=== PATIENT | female | born 1970 | race Caucasian/White ===

== ENCOUNTER 2020-01-31 06:37 | Outpatient (CLI) | payer OTHER, SELFPAY ==
--- NOTE | ~2020-01-31 | XR_ITS ---
EXAMINATION: XR abdomen/kub 1V INDICATION: Gross hematuria TECHNIQUE: Supine views of the abdomen were obtained on 2 radiographs. COMPARISON: None FINDINGS: A phlebolith is noted in the left pelvis. No suspected urinary tract calculi are identified . A moderate volume of colonic stool is present. The bowel gas pattern is normal. IMPRESSION: 1. No radiographic correlate for the patient's symptoms. Reviewed, dictated and finalized at location A.
--- NOTE | ~2020-01-31 | CT_ITS ---
EXAMINATION: CT abdomen pelvis wo/w con DATE: 01/31/2020 07:26 INDICATION: Frequent bladder infections, gross hematuria TECHNIQUE: Computed tomography (CT) of the abdomen and pelvis was performed without intravenous contr ast. CT of the abdomen and pelvis was then performed with a total of 130 mL Omnipaque 350 intravenous contrast using a double-bolus technique for simultaneous opacification of the renal parenchyma and r enal collecting system. The dose-length product (DLP) was 1825.69 mGy-cm. Maximum intensity projectio n 3D-reconstructions of the collecting system were created by the technologist at a separate workstat ion. Automated exposure control and iterative reconstruction technique were employed. COMPARISON: None FINDINGS: The lung bases are clear. The heart size is normal. There is a small sliding hiatal hernia. The liver, spleen, pancreas, gallbladder, and adrenal glands are normal. There is a 2 mm nonobstruct ing stone in the left kidney lower pole. No stones are present in the right kidney, ureters, or the b ladder. There is no hydronephrosis or hydroureter. No suspicious renal or urothelial lesion is identi fied. No pathologically enlarged abdominal or pelvic lymph nodes are identified. There is no free int raperitoneal gas or evidence of bowel obstruction. The appendix is normal. There is mild lumbar spond ylosis. IMPRESSION: 1. 2 mm nonobstructing left kidney stone. No suspicious renal or urothelial lesion identified. No hyd ronephrosis or hydroureter. Reviewed, dictated and finalized at location A. IMPRESSION: 1. 2 mm nonobstructing left kidney stone. No suspicious renal or urothelial les ion identified. No hydronephrosis or hydroureter.
== END 2020-01-31 06:38 | disposition home or self-care (01) ==
LOC: ANHIMG 06:38
PROVIDERS: PCP Internal Medicine; Visit Provider Nurse Practitioner Adult Health
DX: R31.0 Gross hematuria (principal); N20.0 Calculus of kidney
CPT/HCPCS: 74018; 74178; Q9967

== ENCOUNTER 2025-06-17 14:03 | Outpatient (CLI) | payer BC, SELFPAY ==
--- NOTE | ~2025-06-17 | MM_ITS ---
EXAMINATION: MM screening darya BI w sandra HISTORY: Screening TECHNIQUE: Craniocaudal and mediolateral oblique 3-D tomosynthesis images were obtained and synthetic 2-D images were generated. CAD analysis was submitted and interpreted. COMPARISON: No prior mammogram is available for comparison at this institution. BREAST PARENCHYMAL COMPOSITION: The breasts are extremely dense, which lowers the sensitivity of mammography. FINDINGS: There is no evidence of suspicious mass, calcification, or architectural distortion to suggest malignancy. Focal asymmetry in the right breast at 12:00 position middle depth. IMPRESSION: 1. Focal asymmetry in the right breast at the 12:00 position middle depth. The study is incomplete. A diagnostic mammogram and a diagnostic ultrasound are recommended. 2. No evidence of malignancy in the left breast. BI-RADS 0: Incomplete-Need additional imaging evaluation. Reviewed, dictated and finalized at location Q. IMPRESSION: 1. Focal asymmetry in the right breast at the 12:00 position middle depth. The study is incomplete. A diagnostic mammogram and a diagnostic ultrasound are rec ommended. 2. No evidence of malignancy in the left breast. BI-RADS 0: Incomplete-Need additional imaging evaluation.
--- OUTSIDE RECORDS SUMMARY | 2025-06-17 15:13 | XMS_ITS | Encounter Summary ---
Author Organization [facility] Address [address] [place] [address] Phone Care Team Providers Care Accounts Payable Specialist Name Role Phone Ramana Garcias MD Primary Care Provi kenia Vani Freed MD Primary Care Provide r Vani Freed MD Primary Care Provide r Oliver Calixto MD Primary Care Provider [phone] Ramana Cody MD Unavailable [phone] Encounter Details Date Type Department Care Team (Late st Contact Info) Description 12/12/2017 Orders Only [facility] ProviderNolvia MD [facility] [place] [address] Social History Tobacco Use Types Packs/Day Years Used Date Smoking Tobacco: Never Smokeless Tobacco: Never Alcohol Use Standard Drinks/Week Comments Yes 10 (1 standard drink = 0.6 oz pu re alcohol) Comments No Sex and Gender Information Value Date Recorded Sex Assigned at Not on file Legal Sex Female 6:46 PM QUALITY ASSURANCE PROJECT MANAGER Gender Identity Female 09/01/2020 8:00 AM QUALITY ASSURANCE PROJECT MANAGER Sexual Orientation Straight 09/01/2020 8: 00 AM QUALITY ASSURANCE PROJECT MANAGER documented as of this encounter Plan of Treatment Not on file documented as of this encounter Procedures Procedure Name Priority Date/Time Associated Diagnosis Comments DISCHARGE LABORATORY CUMULATIVE REPORT 12/12/2017 12:00 AM CDT documented in this encounter Results * DISCHARGE LABORATORY CUMULATIVE REPORT (12/12/2017 12:00 AM CDT) Narrative 12/12/2017 12:00 AM CDT Ordered by an unspecified provider. us Historical Provider LAB BLOOD ORDERABLES Edith l Result documented in this encounter Visit Diagnoses Not on filedocumented in this encounter Additional Health Concerns Infection Onset Date Last Indicated Resolved Time COVID19 08/25/2020 08/25/2020 09/08/2020 3:06 AM QUALITY ASSURANCE PROJECT MANAGER COVID: Recovered Comment:Added based on recent COVID infection. 09/08/2020 09/08/2020 01/06/2021 3:05 AM C DT COVID: Suspected 09/06/2022 09/06/2022 09/06/2022 2:41 PM QUALITY ASSURANCE PROJECT MANAGER COVID: Suspected 09/06/2022 09/06/2022 09/06/2022 9:18 PM QUALITY ASSURANCE PROJECT MANAGER COVID: Suspected 09/24/2023 09/24/2023 09/24/2023 2:42 PM QUALITY ASSURANCE PROJECT MANAGER COVID: Suspected 09/24/2023 09/24/2023 09/24/2023 2:57 PM QUALITY ASSURANCE PROJECT MANAGER COVID19 09/24/2023 09/24/2023 10/04/2023 3:05 AM QUALITY ASSURANCE PROJECT MANAGER COVID: Recovered Comment:Added based on recent COVID infection. 10/04/2023 10/09/2023 01/02/2024 3:05 AM C DT COVID: Suspected 06/14/2025 06/14/2025 06/14/2025 10:04 AM CDT documented as of this encounter Care Teams Accounts Payable Specialist Relationship Specialty Start Date End Date Ramana Garcias MD PCP - General 11/13/12 03/30/22 Vani Freed MD [address] [place] [address] [address] PCP - General Family Medicine 04/15/22 04/19/22 Vani Freed MD [address] [place] [address] PCP - General 03/31/22 04/14/22 Oliver Calixto MD [address] [place] [address] PCP - General Family Medicine 04/20/22 Ramana Cody MD [address] [place] [address] Anesthesiologist Pain Management 07/19/22 documented as of this encounter
--- OUTSIDE RECORDS SUMMARY | 2025-06-17 15:13 | XMS_ITS | Clinical Summary ---
Author Organization [facility] Building A Address [address] [place] [address] Care Team Providers [employer] Name Role Phone Oliver Calixto MD Primary Care Provider [phone] Ramana Cody MD Unavailable [phone] Allergies Active Allergy Reactions Criticality Noted Date Comments Venom-Honey Bee Swelling Medium 10/07/2017 Cat Dander Swelling High 10/25/2017 Red and hot sensitive to touch. Solifenacin Edema Medium 04/14/2018 Medications rOPINIRole (REQUIP) 0.25 mg tablet Take 1 tablet (0.25 mg total) by mouth 3 (three) times a day 90 tablet 3 11/12/19 21 Active ondansetron ODT (ZOFRAN-ODT) 4 mg disintegrating tabletIndications:N ausea Take 1 tablet (4 mg total) by mouth every 8 (eight) hours as needed for nausea 20 tablet 12/06/19 25 Active [place] Thyroid 60 mg tablet Take 1 tablet (60 mg total) by mouth daily 90 tablet 1 02/22/20 25 Active traZODone (DESYREL) 50 mg tablet Take 1 tablet (50 mg total) by mouth nightly as needed for sleep 90 tablet 4 03/22/20 25 Active venlafaxine XR (EFFEXOR-XR) 75 mg 24 hr capsule Take 1 capsule (75 mg total) by mouth daily 90 capsule 04/03/20 25 Active estradioL (ESTRACE) 0.01 % (0.1 mg/gram) vaginal cream Insert 1g vaginally at bedtime every night for 2 weeks, after 2 weeks - insert 1g vaginally at bedtime 2-3 times per week as maintenance dose Active estradioL (VIVELLE-DOT) 0.05 mg/24 hr APPLY 1 PATCH TOPICALLY TO THE SKIN 2 TIMES A WEEK Active progesterone (PROMETRIUM) 100 mg capsule Take by mouth daily Active meloxicam (MOBIC) 15 mg tabletIndications:P rimary osteoarthritis of right knee Take 1 tablet (15 mg total) by mouth daily Every other day 05/08/20 25 026 Active diclofenac sodium (VOLTAREN) 1 % gelIndications:Oste oarthritis of the Knee Apply 4 g topically 4 (four) times a day 200 g 2 05/08/20 25 Active benzonatate (TESSALON) 200 mg capsuleIndications: Acute nasopharyngitis (common cold) Take 1 capsule (200 mg total) by mouth 3 (three) times a day as needed for cough 30 capsule 06/14/20 25 Active albuterol HFA (PROVENTIL HFA,VENTOLIN HFA,PROAIR HFA) 90 mcg/actuation inhalerIndications: Acute nasopharyngitis (common cold) Inhale 2 puffs every 6 (six) hours as needed for shortness of breath 18 g 06/14/20 25 Active Active Problems Problem Noted Date Diagnosed Date Primary osteoarthritis of right knee 05/08/2025 Assessment & Plan (05/08/2025 11:48 AM CDT): Reviewed xray results showing mild arthritis and small effusion. Will continue on Meloxicam every other day and start on Voltaren gel. Will continue to monitor. Referral placed to [facility] in [place] for physical therapy. Orders: Ambulatory referral order to Physical Therapy -; Future meloxicam (MOBIC) 15 mg tablet; Take 1 tablet (15 mg total) by mouth daily Every other day diclofenac sodium (VOLTAREN) 1 % gel; Apply 4 g topically 4 (four) times a day Healthcare maintenance 02/21/2025 Assessment & Plan (02/21/2025 3:30 PM CDT): Due for Pap/well-woman exam. Also interested in discussing hormone replacement therapy options. Previously under care of Dr. Borges, however has not been seen in the last 5 years and was unable to schedule appointment until March 2026. 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 Sleep disturbance 02/21/2025 Assessment & Plan (02/21/2025 3:29 PM CDT): Not sleeping well, has difficulty both falling and staying asleep. She reports frequent hot flashes at night. Continue venlafaxine 75 mg daily. Will trial p.r.n. trazodone and monitor response. Encouraged sleep hygiene. BMI 25.0-25.9,adult 02/21/2025 Assessment & Plan (05/08/2025 11:48 AM CDT): Weight appropriate for patient. Assessment & Plan (02/21/2025 3:30 PM CDT): Weight stable, encouraged healthy diet and regular exercise. Physical exam, annual 10/09/2024 Assessment & Plan (10/09/2024 9:14 AM SALES MGR): Preventive exam; reviewed recommended preventive screenings and vaccinations. Encourage annual flu vaccine. Wear sunscreen/protective clothing when outdoors. Encouraged healthy diet and regular exercise. Moderate episode of recurrent major depressive d isorder 10/09/2023 DDD (degenerative disc disease), lumbar 02/20/20 22 Degenerative lumbar spinal stenosis 02/19/2022 Lumbar facet arthropathy 02/19/2022 Lumbar radiculopathy 02/19/2022 Insomnia secondary to chronic pain 02/19/2022 Sacroiliitis 02/19/2022 Assessment & Plan (10/09/2024 9:13 AM SALES MGR): Continue meloxicam with good response, continue to monitor. Post viral asthma 01/27/2022 Assessment & Plan (01/27/2022 3:44 PM CDT): Cough andwheeze After covid. chedck cxr start bid symbicort dn dprn albuterol Asthma is the excess production of secretions and reactivity/twitchiness of the breathing / bronchial tubes. This can be chronic ,acute on chronic or episodic(acute).Inhaled materials in the form of pollutants( gaseous or particles) pollens ,exercise or infections that are usually viral. Some people never have issues unless they get a cold/flu. Some are mainly induced by exercise.If you have a regular need (read nearly daily use or need) of a rescue inhaler like albuterol you should be started on or use your controller inhaler/medicines..There is a place for episodic steroid use for those who have had or are having a fairly severe spell.There is a need for regular use of controller meds(usually steroid containing inhalers) for those who are proven to have a chronically obstructed breathing pattern. If you feel you are getting worse then an urgent visit to the er is in order or at least a return to the clinic for a re-evaluation of your meds/treament. Acute bilateral low back pain with bilateral sci atica 01/27/2022 Assessment & Plan (01/27/2022 3:44 PM CDT): New onset november and wowrse trial pt and worse over 3 treatments and stopped will ref er to pain trial for mri if can get but get L//s spine now Colon cancer screening 12/08/2021 Assessment & Plan (12/08/2021 4:20 PM CDT): Colon cancer referral Chronic right-sided low back pain without sciati ca 12/08/2021 Assessment & Plan (12/08/2021 4:24 PM CDT): Not stiff and refers to r buttock referal to pain md and s ee if not hsopful Essential hypertension 12/16/2020 Assessment & Plan (12/08/2021 4:14 PM CDT): The bp up some with ekg not showing bp effect. w0so watch anddwill drop with wt Hypertension, Medical treament revolves around weight control, salt management, and meds when necessary. long as weight loss is necessary and you are able to drop weight we can cont to monitor the blood pressure and not add meds. Once the weight is not changing then it becomes nesessary to add meds to be able to reach the goal bp. Assessment & Plan (07/20/2021 8:38 AM SALES MGR): bp on high side and needs to drp and will with wt or add medsHypertension, Medical treament revolves around weight control, salt management, and meds when necessary. long as weight loss is necessary and you are able to drop weight we can cont to monitor the blood pressure and not add meds. Once the weight is not changing then it becomes nesessary to add meds to be able to reach the goal bp. Assessment & Plan (03/17/2021 8:20 AM CDT): bp cont to push need to rx and if not lose wt then will start meds proposes wt lose inj and willl see if coHypertension, Medical treament revolves around weight control, salt management, and meds when necessary. long as weight loss is necessary and you are able to drop weight we can cont to monitor the blood pressure and not add meds. Once the weight is not changing then it becomes nesessary to add meds to be able to reach the goal bp.sri. Assessment & Plan (12/16/2020 2:11 PM CDT): bp driftin gdown but neds more and if not able to get wt down more then will needmeds for bp. ekg with early bp effects. Hypertension, Medical treament revolves around weight control, salt management, and meds when necessary. long as weight loss is necessary and you are able to drop weight we can cont to monitor the blood pressure and not add meds. Once the weight is not changing then it becomes nesessary to add meds to be able to reach the goal bp. Abnormal uterine bleeding 07/11/2020 Overview (07/11/2020): Added automatically from request for surgery [id number] Right lower quadrant pain 06/03/2020 Overview (06/03/2020): Will get another opinion on this by surgery and their recommendations. Avoid heavy lifting, constipation. told her what to look out for Assessment & Plan (06/03/2020 11:35 AM CDT): Unable to palpate hernia or defect, requested to have CD of CT images brought from [facility]. Patient agrees. Continue to avoid heavy lifting or other aggravating factors. Will call patient after review of case with . Atypical squamous cell nichols es of undetermined significance (ASCUS) on cervical cytology with positive high risk human papilloma virus (HPV) 07/10/2019 Overview (03/25/2022): Note: Unchanged Microscopic hematuria 06/19/2018 Assessment & Plan (07/24/2019 10:02 AM SALES MGR): Stable and chroinc Assessment & Plan (06/19/2018 9:04 AM CDT): Last uraine with micro Blood. Asked for referral ahthat got lost. Period was 10 days . Can repeat urine now but would refer forhte blood. As on period will cancel the ordered urine for today as high likely antonio of being positive History of recurrent UTI (urinary tract infectio n) 04/15/2018 Assessment & Plan (02/22/2020 1:37 PM CDT): Trying ccranberry and se if helps by fall go to Reg cranberries 6 -9 a day and see what that is Urge incontinence of urine 02/16/2018 Assessment & Plan (04/14/2021 1:54 PM CDT): Ditropan at 5mg works and out for 5 wks and back on an dworking Assessment & Plan (06/19/2018 8:56 AM CDT): meds wowrking Assessment & Plan (02/16/2018 9:20 AM CDT): Trial ditropan 5 bid and re assess 4-6 wks. And adjust up as need and tolerated IGT (impaired glucose tolerance) 02/16/2018 Assessment & Plan (12/08/2021 4:00 PM CDT): a1C AT 5.5 AND BETTER Assessment & Plan (07/20/2021 8:37 AM SALES MGR): a1c 5.7 and was 5.4 and neds to drop Assessment & Plan (03/17/2021 8:19 AM CDT): a1c drifting down to 5.4 and better despite wt Gain. Assessment & Plan (12/16/2020 2:10 PM CDT): a1c at 5.6 and nl . Assessment & Plan (11/11/2020 9:12 AM SALES MGR): a1c at 5.6 pre diabetic and inching up diet works Assessment & Plan (06/12/2020 1:35 PM CDT): a1c at 5.5 and nl. Assessment & Plan (02/22/2020 1:39 PM CDT): Check a1c on rturn Assessment & Plan (07/24/2019 9:58 AM SALES MGR): a1c at 5.4 and 5.6 nl. Assessment & Plan (06/19/2018 8:56 AM CDT): Check a1c on return Assessment & Plan (02/16/2018 9:21 AM CDT): Check a1c on return Recurrent major depressive disorder, in partial remission 06/22/2017 Assessment & Plan (10/09/2024 9:14 AM SALES MGR): Had tapered venlafaxine from 225 mg to 150 mg. States that she try to further reduce dosage 75 mg and noted some irritability so she has continued venlafaxine at 150 mg daily. Feels moods are stable at this time. Will continue to monitor. Assessment & Plan (12/08/2021 4:20 PM CDT): Doing great with chooane in meds And life job. Assessment & Plan (07/20/2021 8:40 AM SALES MGR): derpressino and partial contorll and restarting acativbity and workout s and help Assessment & Plan (04/14/2021 2:04 PM CDT): Active with dad's consider adding seroquel for help if not settelewd Assessment & Plan (12/16/2020 2:13 PM CDT): derpoiesn improved and with stress will settle as that dose for now leave meds as on . Assessment & Plan (11/11/2020 9:13 AM SALES MGR): Active depresion and will add 75 of ef fexor and see in 4-6 wks and see if enough if no changs then back off and add s oemthing elese. Life activty and spring will help Assessment & Plan (06/12/2020 1:34 PM CDT): Working and watch for wnter worsening Assessment & Plan (02/22/2020 1:39 PM CDT): Back on meds and will give it time Assessment & Plan (11/16/2019 3:32 PM CDT): Increase lexapro 30mg by mouth daily. Patient instructed to cut current 20mg tab in half to add 10mg. Discussed risk associated with use of effexor in addition to lexapro. Patient verbalized understanding and agreed to plan of care at this time. Will follow up in 4 months as discussed. In addition, recommend healthy outlets to help handle current stressors. We discussed journaling as well as diet and exercise. Patient verbalized understanding and agreed to plan of care at this time. Assessment & Plan (07/24/2019 10:01 AM SALES MGR): Depression not apparently controlled given 30 lbs gain so needs to recognize the stressors and how she is repondingl Assessment & Plan (06/19/2018 8:52 AM CDT): Depression well controlled. And stay with Assessment & Plan (02/16/2018 9:13 AM CDT): worseing father and daughter with major wt issues. Walked thru issue and needs to take care of self and lead partly by example and then will see f.u from those around. meds w orsening but struggling and needs to back off and look and affect what can do and learn where that is. Anovulatory bleeding 11/18/2016 Overview (03/25/2022): Note: Unchanged Urge and stress incontinence 03/11/2016 Overview (03/25/2022): Note: Unchanged Encounter for tubal ligation 11/05/2014 Overview (03/25/2022): Note: Unchanged Assessment & Plan (12/08/2021 4:19 PM CDT): Well exam no other md Low fall risk Stress better. afe 5 1 qdn needs colon eval And well refer for and darya refer. As well , Non flu shot and up to date on tetnus. Had covid shots. Assessment & Plan (11/11/2020 9:18 AM SALES MGR): Well exam derpioens actived and adjmust meds and life and see if helps Screening lipids mildy up and a1c at 5.6. Recent intervention at [facility]. Probably covid months ago. See for bp and li pids in 4 monhts and deproieons in 4-6 wks Discussed colon and for now on back burner Assessment & Plan (07/24/2019 10:09 AM SALES MGR): Consider fal flu shots. Needs to take care of self given 30 lbs gain and not sustainable without causing issues. Ask to checkwith support group about stress, will take a flu shot. Fibrocystic breast changes 11/05/2014 Overview (03/25/2022): Note: Unchanged Multiple-type hyperlipidemia 01/19/2014 Overview (12/08/2016): MIXED HYPERLIPIDEMIA Assessment & Plan (12/08/2021 4:00 PM CDT): t cho up to 279 and ldl 162 trig 329 and high and meds if not get down Your cholesterol in the form of ldl (bad) cholesterol,hdl(good) cholesterol and triglycerides are monitored. The triglycerides respond to reduction/controll of your simple carbs/sugars In such items as sugared soda/sweet tea along with fruit juices(containing natural sugar) even if no added sugar is added. LDL cholesterol is reduced with reducing daily intake of fats and alicia. saturated fats. The monosaturated fats like olive oil are not harmful except in the calories they contained. Whole milk cheese needs to be remembered along with whole milk products And limited. Assessment & Plan (07/20/2021 8:39 AM SALES MGR): ldl up to 141 and was 121 so diet and meds ans ad mds if cont to go up. Your cholesterol in the form of ldl (bad) cholesterol,hdl(good) cholesterol and triglycerides are monitored. The triglycerides respond to reduction/controll of your simple carbs/sugars In such items as sugared soda/sweet tea along with fruit juices(containing natural sugar) even if no added sugar is added. LDL cholesterol is reduced with reducing daily intake of fats and alicia. saturated fats. The monosaturated fats like olive oil are not harmful except in the calories they contained. Whole milk cheese needs to be remembered along with whole milk products And limited. Assessment & Plan (03/17/2021 8:25 AM CDT): ldl and trig inching down with trig 195 and where above 200 by a few and ldl down to 121 and only anothoer 5 lower but heading down no rx and cont diet Your cholesterol in the form of ldl (bad) cholesterol,hdl(good) cholesterol and triglycerides are monitored. The triglycerides respond to reduction/controll of your simple carbs/sugars In such items as sugared soda/sweet tea along with fruit juices(containing natural sugar) even if no added sugar is added. LDL cholesterol is reduced with reducing daily intake of fats and alicia. saturated fats. The monosaturated fats like olive oil are not harmful except in the calories they contained. Whole milk cheese needs to be remembered along with whole milk products And limited. Assessment & Plan (12/16/2020 2:10 PM CDT): ldl at 126 and was 145 so Heading to rightr direction but not there yetYour cholesterol in the form of ldl (bad) cholesterol,hdl(good) cholesterol and triglycerides are monitored. The triglycerides respond to reduction/controll of your simple carbs/sugars In such items as sugared soda/sweet tea along with fruit juices(containing natural sugar) even if no added sugar is added. LDL cholesterol is reduced with reducing daily intake of fats and alicia. saturated fats. The monosaturated fats like olive oil are not harmful except in the calories they contained. Whole milk cheese needs to be remembered along with whole milk products And limited. Assessment & Plan (11/11/2020 9:11 AM SALES MGR): ldl above 100 with target down and see if diet can work and if not then meds.Your cholesterol in the form of ldl (bad) cholesterol,hdl(good) cholesterol and triglycerides are monitored. The triglycerides respond to reduction/controll of your simple carbs/sugars In such items as sugared soda/sweet tea along with fruit juices(containing natural sugar) even if no added sugar is added. LDL cholesterol is reduced with reducing daily intake of fats and alicia. saturated fats. The monosaturated fats like olive oil are not harmful except in the calories they contained. Whole milk cheese needs to be remembered along with whole milk products And limited. Assessment & Plan (06/12/2020 1:34 PM CDT): ldl at 145 and touch down Work to drop further. Your cholesterol in the form of ldl (bad) cholesterol,hdl(good) cholesterol and triglycerides are monitored. The triglycerides respond to reduction/controll of your simple carbs/sugars In such items as sugared soda/sweet tea along with fruit juices(containing natural sugar) even if no added sugar is added. LDL cholesterol is reduced with reducing daily intake of fats and alicia. saturated fats. The monosaturated fats like olive oil are not harmful except in the calories they contained. Whole milk cheese needs to be remembered along with whole milk products And limited. Assessment & Plan (02/22/2020 1:37 PM CDT): ldl up to 150 and work to drop or add meds if cont to go upYour cholesterol in the form of ldl (bad) cholesterol,hdl(good) cholesterol and triglycerides are monitored. The triglycerides respond to reduction/controll of your simple carbs/sugars In such items as sugared soda/sweet tea along with fruit juices(containing natural sugar) even if no added sugar is added. LDL cholesterol is reduced with reducing daily intake of fats and alicia. saturated fats. The monosaturated fats like olive oil are not harmful except in the calories they contained. Whole milk cheese needs to be remembered along with whole milk products And limited. Assessment & Plan (11/16/2019 3:29 PM CDT): Recheck lipids in 4 months. Total cholesterol has increased total cholesterol increased from 205 to 216. LDL increased to 125 and HDL decrease from 73 to 66 at this time. Triglycerides currently 141. Patient states she did not eat well the night before and admits to alcohol intake the evening before. We discussed importance of diet and exercise not only for stress relief, but to also decrease risk associated with obesity and hyperlipidemia. Patient verbalized understanding and will have repeat labs completed in 4 months, prior to follow up. Your cholesterol in the form of ldl (bad) cholesterol,hdl(good) cholesterol and triglycerides are monitored. The triglycerides respond to reduction/control of your simple carbs/sugars In such items as sugared soda/sweet tea along with fruit juices(containing natural sugar) even if no added sugar is added. LDL cholesterol is reduced with reducing daily intake of fats and alicia. saturated fats. The monosaturated fats like olive oil are not harmful except in the calories they contained. Whole milk cheese needs to be remembered along with whole milk products and limited. Assessment & Plan (07/24/2019 9:57 AM SALES MGR): ldl at 106 and less ehn 130 and good no changx Assessment & Plan (06/19/2018 8:55 AM CDT): Check labs on returnYour cholesterol in the form of ldl (bad) cholesterol,hdl(good) cholesterol and triglycerides are monitored. The triglycerides respond to reduction/controll of your simple carbs/sugars In such items as sugared soda/sweet tea along with fruit juices(containing natural sugar) even if no added sugar is added. LDL cholesterol is reduced with reducing daily intake of fats and alicia. saturated fats. The monosaturated fats like olive oil are not harmful except in the calories they contained. Whole milk cheese needs to be remembered along with whole milk products And limited. Assessment & Plan (02/16/2018 9:10 AM CDT): Trigs high and ldl t barely less then 130. Your cholesterol in the form of ldl (bad) cholesterol,hdl(good) cholesterol and triglycerides are monitored. The triglycerides respond to reduction/controll of your simple carbs/sugars In such items as sugared soda/sweet tea along with fruit juices(containing natural sugar) even if no added sugar is added. LDL cholesterol is reduced with reducing daily intake of fats and alicia. saturated fats. The monosaturated fats like olive oil are not harmful except in the calories they contained. Whole milk cheese needs to be remembered along with whole milk products And limited. Assessment & Plan (06/22/2017 2:34 PM CDT): ldl less then 130 and nl but up over last yr. Now 118 and nl chanes but overall diet causing. No changes fornowYour cholesterol in the form of ldl (bad) cholesterol,hdl(good) cholesterol and triglycerides are monitored. The triglycerides respond to reduction/controll of your simple carbs/sugars In such items as sugared soda/sweet tea along with fruit juices(containing natural sugar) even if no added sugar is added. LDL cholesterol is reduced with reducing daily intake of fats and alicia. saturated fats. The monosaturated fats like olive oil are not harmful except in the calories they contained. Whole milk cheese needs to be remembered along with whole milk products And limited. Perimenopausal disorder 01/19/2014 Overview (03/25/2022): PMS (premenstrual syndrome) Note: Unchanged Anxiety 01/19/2014 Overview (03/25/2022): ANXIETY STATE NOS Note: Unchanged Assessment & Plan (02/21/2025 3:28 PM CDT): Has continued venlafaxine 75 mg daily. Patient experiencing increased anxiety that she feels is related to hormone fluctuations. We discussed adding buspirone, patient will consider and reach out if she would like to pursue this. Denies any depressive symptoms. Will continue to monitor. Resolved Problems Problem Noted Date Diagnosed Date Resolved Date Class 1 obesity with body ma ss index (BMI) of 34.0 to 34.9 in adult 12/16/2020 10/09/2024 Assessment & Plan (01/27/2022 4:43 PM CDT): Work wt Assessment & Plan (12/08/2021 4:13 PM CDT): Watch wt Assessment & Plan (07/20/2021 8:41 AM SALES MGR): workto keep from cont to gain Assessment & Plan (04/14/2021 2:02 PM CDT): Wants to try vcitoza and aware likely not covered discussed starting at max .6 and work up and if Finds 1.2 helps with appttice stop then Assessment & Plan (03/17/2021 8:26 AM CDT): Wt lose important trial victoza if covered Assessment & Plan (12/16/2020 2:14 PM CDT): Wt better But needs more wt off s bp will xcome down BMI 27.0-27.9,adult 04/15/2018 07/24/20 19 Assessment & Plan (06/19/2018 8:57 AM CDT): droping wt and stopthe phenterime and rechec onreturn. Burning with urination 04/15/201806/19 Elevated BP without diagnosis of hypertension 02/17/20 18 12/16/2020 Assessment & Plan (11/11/2020 9:06 AM SALES MGR): The bp high and treatable if not able to btring down. ekg with axis 4 and at - evangelista fitcriteria for htn heart Wt off should bring down bp. Will recheck in 4 monoths and see if worse stress an issueHypertension, Medical treament revolves around weight control, salt management, and meds when necessary. long as weight loss is necessary and you are able to drop weight we can cont to monitor the blood pressure and not add meds. Once the weight is not changing then it becomes nesessary to add meds to be able to reach the goal bp. Assessment & Plan (06/12/2020 1:35 PM CDT): bp cont to be up some and will drop as wt drops If not will see need for meds Assessment & Plan (02/22/2020 1:36 PM CDT): bp o high side nl check ekg on return or with well exam and see if card bp effectsHypertension, Medical treament revolves around weight control, salt management, and meds when necessary. long as weight loss is necessary and you are able to drop weight we can cont to monitor the blood pressure and not add meds. Once the weight is not changing then it becomes nesessary to add meds to be able to reach the goal bp. Assessment & Plan (11/16/2019 3:29 PM CDT): Hypertension, Medical treament revolves around weight control, salt management, and meds when necessary. long as weight loss is necessary and you are able to drop weight we can cont to monitor the blood pressure and not add meds. Once the weight is not changing then it becomes nesessary to add meds to be able to reach the goal bp. Assessment & Plan (07/24/2019 10:01 AM SALES MGR): bp high enough tat if cont to gain wt will need to take meds will drop if drps wt Assessment & Plan (06/19/2018 8:52 AM CDT): Wt off and bp droopped and would sexpect to see it cont to drop and stay down as wt dose. Will hold the phentermine as wt off and feels notthe reason for wt off Assessment & Plan (02/16/2018 9:08 AM CDT): Monitor 1-2 times a month and record. Target less tehn 130/80 as targetHypertension, Medical treament revolves around weight control, salt management, and meds when necessary. long as weight loss is necessary and you are able to drop weight we can cont to monitor the blood pressure and not add meds. Once the weight is not changing then it becomes nesessary to add meds to be able to reach the goal bp. Cat bite of hand, left, sequela 10/08/2017 02/16/2018 Assessment & Plan (10/25/2017 3:22 PM SALES MGR): In hosp cat bite. Not sure if had t etnus but reportedly ordered. Done with antibiotics 4 dasy ago. Residual hand soreness and just now able to close hand. Not putting back onrings. Residual likely post bite inflamation and made worse by the infectio but t raum is now clearing and will go slow. Assessment & Plan (10/11/2017 7:25 AM SALES MGR): She continues to improve, with near resolution of erythema. Moderate swelling persists, but movement of the index finger a joint is significantly improved with less pain. She remains afebrile, and white blood cell count is normal. We can switch to oral medications and treat for another 10 days. A I will be out of town until October 25, but if Infectious Disease follow-up is needed, I will be available by telephone, or she could see another infectious disease physician. However, I expect the improvement to continue with oral medications. I plan to sign off at this point. Please call if additional questions arise. Thank you for the consultation. BMI 32.0-32.9,adult 06/22/2017 12/17/19 Assessment & Plan (11/11/2020 9:13 AM SALES MGR): Work to robina wt Assessment & Plan (06/12/2020 1:34 PM CDT): Work to drop more Assessment & Plan (02/22/2020 1:36 PM CDT): Work to drop a few lbs Assessment & Plan (07/24/2019 9:57 AM SALES MGR): Sign wt gain in albst 4-6 months needs to re cognize and work to stabilize and then drop Assessment & Plan (02/16/2018 9:04 AM CDT): Being over weight is dealt with by restriction of you daily calories and increasing your calorie needs with increases in your work load/exercises or just increases in daily activity. There are different programs for weight loss and they all are felt to be relatively equally effective and you can make a choice as to what works for you. Assessment & Plan (06/22/2017 2:36 PM CDT): Appetite out of controll and stuggles. Wants meds to help Given vpsychoactive meds on the stimulnt might not be tolerated well. Will s tt low at 15 and monitor effect . Recheck in one month and adjust Need for vaccination 06/25/2015 017 Overview (12/10/2016): Encounter for immunization Encounters Date Type Department Care Team Description 06/14/2025 9:45 AM CDT Office Visit [facility] [address] [place] [address] Kasandra Willis NP Acute nasopharyngitis (common cold) (Primary Dx); Sore throat; Suspected COVID-19 virus infection 06/14/2025 Nurse Triage [facility] [address] [address] Oliver Calixto MD 05/22/2025 Telephone [facility] [address] [address] Karen Boyd NP 05/16/2025 Telephone [facility] [address] [address] Oliver Calixto MD 05/08/2025 11:00 AM CDT Office Visit [facility] [address] [address] Karen Boyd NP Primary osteoarthritis of right knee (Primary Dx); Effusion of right knee; BMI 25.0-25.9,adult 05/07/2025 Telephone [facility] [address] [address] Oliver Calixto MD Test Results 04/23/2025 10:09 AM CDT - 04/23/2025 11:59 PM CDT Hospital Encounter [facility] [address] [place] [address] Contusion of right knee, initial encounter Discharge Disposition: Discharge to home or self care from Last 3 Months Immunizations Immunization Administration Dates Next Due Influenza, Quadrivalent, Spl it, Preservative Free, Intradermal 06/25/2015 Influenza, Quadrivalent, Spl it, Preservative Free, Intramuscular 07/24/2019,06/22/2017 Influenza, Trivalent, IM (MDV) 07/31/2008 Influenza, Unspecified 05/08/2025(Deferr ed: Patient Refused),10/09/2024(Deferred: Patient Refused),06/05/2024(Deferred: Patient Refused),06/05/2024(Deferred: Patient Refused),05/06/2024(Deferred: Patient Refused),06/05/2023(Deferred: Patient Refused),06/05/2023(Deferred: Patient Refused),05/16/2023(Deferred: Patient Refused),09/05/2022(Deferred: Patient Refused),06/05/2022(Deferred: Patient Refused),06/05/2022(Deferred: Patient Refused),09/05/2021(Deferred: Patient Refused),09/05/2021(Deferred: Patient Refused),07/20/2021(Deferred: Patient Refused),04/14/2021(Deferred: Patient Refused),09/05/2020(Deferred: Patient Refused),06/12/2020(Deferred: Patient Refused),06/05/2020(Deferred: Patient Refused),07/24/2019(Deferred: Patient Refused),10/19/2018(Deferred: Patient Refused),06/05/2018(Deferred: Patient Refused) Pfizer SARS-CoV-2 Monovalent Vaccination (12+ Yrs) PURPLE 12/29/2020,12/08/2020 Tdap 10/08/2017 Surgical History Surgery Date Site/Laterality Comments SECTION 1997, 1995 section TUBAL LIGATION 09/05/1997 - 09/04/1998 DILATION AND CURETTAGE OF UTERUS 09/05/2019 - 09/04/2020 ABLATION 09/05/2020 - 09/04/2021 of uterus COLONOSCOPY 10/21/2022 SECTION Medical History Medical History Date Comments Hx 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 Anxiety Covid-19 08/25/2020 Essential hypertension 12/16/2020 Post viral asthma 01/27/2022 DDD (degenerative disc disease), lumbar 02/20/20 22 Arthritis Family History Medical History Relation Name Comments Alzheimer's disease Father Ramana Garcia Diabetes Father Ramana Garcia Diabetes mellit us; Hypertension Father Ramana Garcia Hypertension; COPD Mother Gloria Garcia Diabetes Mother Gloria Garcia Diabetes triston itus; Hypertension Mother Gloria Garcia Hypertension; Anesthesia problems Neg Hx Relation Name Status Comments Father Ramana Garcia Mother Gloria Garcia Alive Other sister Alive Sister 1 Alive Sister 2 Alive Social History Tobacco Use Types Packs/Day Years Used Date Smoking Tobacco: Never Smokeless Tobacco: Never Tobacco Cessation:Counseling Given: Not Answered Alcohol Use Standard Drinks/Week Comments Yes 4 (1 standard drink = 0.6 oz pur e alcohol) AUDIT-C Answer Date Recorded Q1: How often do you have a drink containing alc ohol? 2-3 times a week 05/16/2023 Q2: How many drinks containi ng alcohol do you have on a typical day when you are drinking? 1 or 2 05/16/2023 Q3: How often do you have si x or more drinks on one occasion? Never 05/16/2023 PHQ-2 Answer Date Recorded PHQ-2 Total Score (If total score is 3 or more points, staff should administer the PHQ-9) 0 05/08/2025 Personal Safety Answer Date Recorded Getting School Help Needed Denies 08/17 Comments No Sex and Gender Information Value Date Recorded Sex Assigned at Not on file Legal Sex Female 6:46 PM SALES MGR Gender Identity Female 09/01/2020 8:00 AM SALES MGR Sexual Orientation Straight 09/01/2020 8: 00 AM SALES MGR Obstetrics History Para Term AB IAB SAB Ectopic Multiple Livin g Live Births 2 2 2 Date Outcome GA Total Labor Labor/2nd/3rd Weight Sex Type Anes PTL Trini A1 A5 Name Clin Term Term Last Filed Vital Signs Vital Sign Reading Time Taken Comments Blood Pressure 112/70 06/14/2025 9:38 AM CDT Pulse 65 06/14/2025 9:38 AM CDT Temperature 36.2 C (97.2 F) 06/14/2025 9:38 AM CDT Respiratory Rate 18 06/14/2025 9:38 AM CDT Oxygen Saturation 99% 06/14/2025 9:38 AM CDT Inhaled Oxygen Concentration - - Weight 64 kg (141 lb) 06/14/2025 9:38 AM CDT Height 162.6 cm (5' 4) 06/14/2025 9:38 AM CDT Body Mass Index 24.2 06/14/2025 9:38 AM CDT Plan of Treatment Health Maintenance Due Date Last Done Comments Hepatitis C Screening 1970 Osteoporosis Screening-Bone Density Scan 1970 Hepatitis B Screening 1988 Zoster Vaccine (1 of 2) 2020 Breast Cancer Screening-Mammogram 12/18/2023 12/17/2022, 12/15/2021, 12/13/2020, Additional history exists Covid-19 Vaccine (3 - 2024- season) 2025 12/29/2020, 12/08/2020 Influenza Vaccine (#1) 2025 9, 06/22/2017, 06/25/2015, Additional history exists Pneumococcal vaccine <65 (1 of 2 - PCV) 09/24/2025 Postponed from 1989 (Patient declined, but will receive in the future) Regular Well Visit/Exam 18-64 10/09/2025 10/09/2024, 12/08/2021, 11/11/2020, Additional history exists Depression Screening 05/08/2026 05/08/2025, 02/21/2025, 10/09/2024, Additional history exists DTaP/Tdap/Td Vaccine (2 - Td or Tdap) 10/08/2027 10/08/2017 Colon Cancer Screening-Colonoscopy 10/21/2032 10/21/2022 Goals Goal Patient Goal Type Associated Problems Recent Progress Patient-Stated? Author [facility] On track( 023 8:32 AM CDT) Aminah Dent, RN Note: Patient will establish a comfort-function goal and identify the pain level that will allow the patient to perform desired activities and achieve an acceptable quality of life. Procedures Procedure Name Priority Date/Time Associated Diagnosis Comments POCT RAPID STREP Routine 06/14/2025 10:0 3 AM CDT Sore throat Suspected COVID-19 virus infection POC INFLUENZA A/B, COVID-19 ANTIGEN Routine 06/14/2025 10:02 AM CDT Sore throat Suspected COVID-19 virus infection XR KNEE RIGHT 4 OR MORE VIEWS Schedule Routine, Read Routine (OP Routine) 04/23/2025 11:03 AM CDT Contusion of right knee, initial encounter SCREENING MAMMOGRAM BILATERAL W JOSE Routine 12/17/2022 8:19 AM CDT Visit for screening mammogram COLONOSCOPY 10/21/2022 9:30 AM SALES MGR from Last 3 Months or Most Recently Relevant to Health Maintenance Results * POCT rapid strep A (06/14/2025 10:03 AM CDT) Rapid Strep A, POC Negative Negative Swab 06/14/2025 10:0 3 AM CDT us Kasandra Irina Lazaro UNION CONTRACT REPRESENTATIVE POINT OF CARE TEST ORDER EVELYNE Final Result * POC Influenza A/B, COVID-19 antigen (06/14/2025 10:02 AM CDT) Influenza A Ag, POC Negative Negative [facility] Influenza B Ag, POC Negative Negative [facility] COVID-19 Ag POC Presumptive Negative Presumptive Negative, Invalid [facility] Nasal 06/14/2025 10:0 2 AM CDT Kasandar Arevalo Lazaro UNION CONTRACT REPRESENTATIVE POINT OF CARE TEST ORDER EVELYNE Final Result [facility] [address] [place] [address], [facility] * XR Knee Right 4+ Vw (04/23/2025 11:03 AM CDT) Anatomical Region Laterality Modality Lower Extremities, Knee Right Computed Radiography 04/24/2025 2:56 PM CDT Narrative 04/24/2025 2:57 PM CDT EXAM DESCRIPTION: 1. XR KNEE RIGHT 4 OR MORE VIEWS REASON FOR STUDY: swelling right knee NKI Medial knee pain. Popping sounds Gardening started the pain FINDINGS: Four views submitted without comparison. No acute fracture. Alignment is normal. Mild medial and patellofemoral bicompartmental right knee osteoarthritis. Small knee effusion. IMPRESSION: 1. Mild medial and patellofemoral bicompartmental right knee osteoarthritis with a small effusion. THIS IS AN ELECTRONICALLY VERIFIED FINAL REPORT 04/24/2025 2:57 PM - Electronically signed by Haseeb Otero M.D. MF: [id number] Report ID: [id number] Reading Location: [id number] Procedure Note Haseeb Otero MD - 04/24/2025 EXAM DESCRIPTION: 1. XR KNEE RIGHT 4 OR MORE VIEWS REASON FOR STUDY: swelling right knee NKI Medial knee pain. Popping sounds Gardening started the pain FINDINGS: Four views submitted without comparison. No acute fracture. Alignment is normal. Mild medial and patellofemoral bicompartmental right knee osteoarthritis. Small knee effusion. IMPRESSION: 1. Mild medial and patellofemoral bicompartmental right kneeosteoarthritis with a small effusion. THIS IS AN ELECTRONICALLY VERIFIED FINAL REPORT 04/24/2025 2:57 PM - Electronically signed by Haseeb Otero M.D. MF: [id number] Report ID: [id number] Reading Location: [place] [address] us Oliver Calixto MD IMG XR PROCEDURES Final R esult * Screening Mammogram Bilateral W Jose (12/17/2022 8:19 AM CDT) Anatomical Region Laterality Modality Breast Bilateral Mammography 12/17/2022 8:25 AM CDT Impressions 12/17/2022 8:25 AM CDT There is no mammographic evidence of malignancy. A 1 year screening mammogram is recommended. BI-RADS: 1 - Negative. The patient has been or will be contacted. The patient will be entered into a reminder system with a target due date of 1 year for her next mammogram. Electronically signed by: Andre Mason M.D. Narrative 12/17/2022 8:25 AM CDT EXAMINATION: SCREENING MAMMOGRAM BILATERAL W JOSE ORDERING HEALTHCARE PROVIDER: SELF SCREENING MAMMOGRAM HISTORY: Routine screening mammography. COMPARISON: 12/15/2021, 12/13/2020, 07/28/2019, 07/18/2018 TECHNIQUE: CC and MLO views of the bilateral breasts were obtained with digital technique using breast tomosynthesis with C view. Computer aided detection was utilized. FINDINGS: DENSITY: There are scattered fibroglandular elements in the bilateral breasts. BREASTS: There are no suspicious masses, suspicious calcifications, or other suspicious findings in either breast. There has been no suspicious interval change. us Self Screening Mammogram IMG MAMMO PROCEDURES Fi nal Result * COLONOSCOPY (10/21/2022 9:30 AM SALES MGR) Anatomical Region Laterality Modality Other Narrative Procedure Note Huey Josue MD - 10/21/2022 9:30 AM CST [facility] Patient Name: Ilana Quiroz Procedure Date: 10/21/2022 9:30 AM Date of : 1970 Admit Type: Outpatient Age: 52 Gender: Female Attending MD: Huey Josue M.D. Room: [facility] ENDOSCOPY ROOM 2 Note Status: Finalized Patient Profile: Refer to note in patient chart for documentation of history and physical. Procedure: Colonoscopy Indications: Screening for colorectal malignant neoplasm, Thisis the patient's first colonoscopy Referring MD: Oliver Calixto M.D. Providers: Huey Josue M.D. Impression: - Hemorrhoids found on perianal exam. - The entire examined colon is normal. - No specimens collected. Recommendation: - Discharge patient to home. - Resume previous diet. - Continue present medications. - Repeat colonoscopy in 10 years for screening purposes. - Return to primary care physician as previously scheduled. Medicines: Propofol per Anesthesia Complications: No immediate complications. Estimated Blood Loss: Estimated blood loss: none. Procedure: Pre-Anesthesia Assessment: - This assessment was completed [Time ofAssessment] prior to the administration of sedation. The benefits, risks and alternatives of theprocedure and sedation were discussed and informed consentwas obtained. All questions were answered. Please referto the signed informed consent document in the medical record. The bowel preparation used was Miralax and bisacodyl tablets via split dose instruction. The scope was passed under direct vision. TheColonoscope [id number] was introduced through the anus and advanced to the the cecum, identified by appendiceal orifice and ileocecal valve. The colonoscopy was performed without difficulty. The patient tolerated the procedure well. The qualityof the bowel preparation was adequate to identifypolyps 6 mm and larger in size. The ileocecal valve, appendiceal orifice, and rectum werephotographed. Findings: Hemorrhoids were found on perianal exam. The colon (entire examined portion) appeared normal. Electronically signed by Huey Josue M.D. Huey Josue M.D. 10/21/2022 11:10:32 AM Number of Addenda: 0 Note Initiated On: 10/21/2022 9:30 AM Procedure Code(s): --- Professional --- G0121, Colorectal cancer screening; colonoscopy on individual not meeting criteria for high risk Diagnosis Code(s): --- Professional --- K64.9, Unspecified hemorrhoids Z12.11, Encounter for screening for malignant neoplasm of colon CPT copyright 2020 [employer]. All rights reserved. The codes documented in this report are preliminary and upon rotary shear worker helper reviewmay be revised to meet current compliance requirements. Recognized by the [employer] for promoting quality in endoscopy Huey Josue MD ENDOSCOPY PROCEDURES Final Re sult from Last 3 Months or Most Recently Relevant to Health Maintenance Insurance [employer] [place] ANTH ACCESS ANTH ACCESS Advance Directives For more information, please contact: [phone] * Full Code (Latest Code Status on File) Date Activated Date Inactivated Comments 10/21/2022 9:39 AM 09/27/2023 12:24 PM * Full Code Date Activated Date Inactivated Comments 10/21/2022 9:39 AM 10/21/2022 9:39 AM * Full Code Date Activated Date Inactivated Comments 10/08/2017 1:03 AM 10/11/2017 11:54 AM Care Teams [employer] Relationship Specialty Start Date End Date Oliver Calixto MD [address] [place] [address] PCP - General Family Medicine 04/20/22 Ramana Cody MD [address] [place] [address] [place] [address] Anesthesiologist Pain Management 07/19/22
--- OUTSIDE RECORDS SUMMARY | 2025-06-17 15:13 | XMS_ITS | Data Portability ---
Author Organization [facility], PAnabell Merrifield Address [address] [place] [address] Care Team Providers Care Coordinator Of Rehabilitation Services Name Role Phone LUCILA PORTILLO Primary Care Provider Assessment No assessment recorded. Plan of Treatment Reminders Order Date Submit Date Provider Last Modified By Organization Details Last Modified Time Details Appointments MED CHECK 2024 10:45A M DU Orellana Not available Not available Not available Lab None recorded. Referral None recorded. Procedures None recorded. Surgeries None recorded. Imaging MAMMO, screening , digital, bilateral 2024 025 JOSEPHINE Not available 04/04/2025 04:07:50 Medication Orders estradiol 0.01% (0.1 mg/gram) vaginal cream 2024 025 [facility] #[id number], [address] [place], [place], [id number], 02/26/2025 17:01:31 estradiol 0.05 mg/24 hr semiweekl y transderm al patch 2024 025 [id number], [address] [place], [place], [phone], 02/26/2025 16:59:10 progester one micronize d 100 mg capsule 2024 025 [facility] #[id number], [address] [place], [place], [phone], 02/26/2025 16:59:08 Patient TargetsNo targets recorded. Patient InstructionsNo instructions recorded. Reason for Referral None Reported. Procedures Surgical History Date Name Laterality Status Provider Name and Address Organization Details Recorded Time 4 completed [facility] 02/26/2025 16:11:38 8 Tubal Ligation completed [facility] 02/26/2025 16:11:39 8 section completed [facility] 02/26/2025 16:21:47 6 Caesarean Section completed [facility] 02/26/2025 16:11:39 Imaging Results None recorded. Procedure Notes None recorded. Medical Equipment None Reported. Allergies No known drug allergies Medications Name Sig Start Date Stop Date Status Note LastModified by Organization Details LastModified Time [place] Thyroid 60 mg tablet TAKE 1 TABLET BY MOUTH EVERY MORNING active Not Available Not Available No t Available Effexor XR 75 mg capsule,ext ended release active Not Available Not Available Not Available trazodone 50 mg tablet active Not Available Not Available Not Available meloxicam 15 mg tablet active Not Available Not Available Not Available estradiol 0.05 mg/24 hr semiweekly transdermal patch APPLY 1 PATCH TOPICALLY TO THE SKIN 2 TIMES A WEEK active Not Available Not Available No t Available progesteron e micronized 200 mg capsule TAKE 1 CAPSULE BY MOUTH EVERY NIGHT AT BEDTIME 02/26 completed Not Available Not Available Not Available [place] Thyroid 30 mg tablet TAKE 1 TABLET BY MOUTH EVERY MORNING 02/26 completed Not Available Not Available Not Available estradiol 0.01% (0.1 mg/gram) vaginal cream Insert 1g vaginally at bedtime every night for 2 weeks, after 2 weeks - insert 1g vaginally at bedtime 2-3 times per week as maintenan ce dose active Not Available Not Available No t Available progesteron e micronized 100 mg capsule TAKE 1 CAPSULE BY MOUTH EVERY DAY active Not Available Not Available No t Available amoxicillin 875 mg-potassiu m clavulanate 125 mg tablet TAKE 1 TABLET BY MOUTH TWICE DAILY FOR 7 DAYS 02/26 completed Not Available Not Available Not Available diclofenac 1 % topical gel APPLY 4 GRAMS TOPICALLY TO THE AFFECTED AREA FOUR TIMES DAILY active Not Available Not Available No t Available Paxlovid 300 mg (150 mg x 2)-100 mg tablets in a dose pack TK 2 NIRMATREL VIR TS AND 1 RITONAVIR T TOGETHER PO BID FOR 5 DAYS 02/26 completed Not Available Not Available Not Available Vitals Date Recorded Body height Body mass index (BMI) Body weight Systolic And Diastolic Provider Name and Address Organization Details Last Updated DateTime 02/26/2025 162.56 cm 25.1 kg/m2 31802.49 g 125/79 mm[Hg] Belindali Carneyney [facility] 02/26/2025 16:13:20 Date Recorded Body height Body mass index (BMI) Body weight Systolic And Diastolic Provider Name and Address Organization Details Last Updated DateTime 03/28/2025 162.56 cm 25.4 kg/m2 20018.67 g 112/76 mm[Hg] Belindali Carneyney [facility] 03/28/2025 12:36:33 Social History Question Answer Notes LastModified by Organizat ion Details LastModified Time Tobacco Smoking Status Never Smoker Belindali Carneyney [facility] 02/26/2025 16:20:44 Do You Have An Advance Directive? Yes [email or web address] Information n ot available 02/26/2025 How Many Years Have You Consumed Alcohol? 33 Information not available 02/26/2025 Are You Blind Or Do You Have Difficulty Seeing? No [email or web address] Information n ot available 02/26/2025 What Is Your Level Of Caffeine Consumption? Moderate [email or web address] Information not available 02/26/2025 How Much Tobacco Do You Chew? None [email or web address] Information not available 02/26/2025 In The 14 Days Before Symptom Onset, Have You Had Close Contact With A Laboratory-confirm ed COVID-19 While That Case Was Ill? No Information n ot available 02/26/2025 In The 14 Days Before Symptom Onset, Have You Had Close Contact With A Person Who Is Under Investigation For COVID-19 While That Person Was Ill? No [email or web address] Information not available 02/26/2025 Have You Been To An Area Known To Be High Risk For COVID-19? No [email or web address] Information not available 02/26/2025 Are You Deaf Or Do You Have Serious Difficulty Hearing? No Information not available 02/26/2025 What Type Of Diet Are You Following? REGULAR [email or web address] Information n ot available 02/26/2025 Which Illicit Or Recreational Drugs Have You Used? MJ [email or web address] Information not available 02/26/2025 What Is The Highest Grade Or Level Of School You Have Completed Or The Highest Degree You Have Received? [id number] [email or web address] Information not available 02/26/2025 Are There Any Guns Present In Your Home? Yes [email or web address] Information not available 02/26/2025 Do You Use Protection During Sex? No [email or web address] Information not available 02/26/2025 Do You Use Your Seat Belt Or Car Seat Routinely? Yes [email or web address] Information not available 02/26/2025 Do You Have Smoke And Carbon Monoxide Detectors In Your Home? Yes [email or web address] Information not available 02/26/2025 How Much Tobacco Do You Smoke? No [email or web address] Information not available 02/26/2025 Do You Use Sunscreen Routinely? Yes [email or web address] Information not available 02/26/2025 Have You Used IV Drugs? No [email or web address] Information not available 02/26/2025 Sex: Unknown Functional Status Question Answer Note LastModified by Organizat ion Details LastModified Time Do you use any illicit or recreational drugs? Yes [email or web address] Information not available 02/26/2025 What is your level of alcohol consumption? Occasional [email or web address] Information not available 02/26/2025 Are you able to walk independently without assistance or assistive devices? 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 Occasional [email or web address] Information not available 02/26/2025 Mental Status Question Answer Note LastModified by Organization D etails LastModified Time Do you feel stressed (tense, restless, nervous, or anxious, or unable to sleep at night)? [id number] [email or web address] Information not available 02/26/2025 Family History Relationship Description Onset Age of this Age Resolved Age Notes LastModified by Organization Details LastModified Time Mother Osteoporosis [email or web address] Not avai lable 02/26/2025 16:11:38 Medical History Condition Response Allergies (Food, seasonal, environmental ) N Other N Breast Cancer N Drug/Latex Allergies/Reactions N Blood Transfusion N Dermatologic Disorders N Lung Disease N Defects or Inherited Disease N Breast Problem N Gestational Diabetes N Hematologic disorders N Anesthesia Complications N History of STI N Deep Vein Thrombosis N Polycystic ovary syndrome N Anxiety Disorder Y Autoimmune disease N Arthritis N Infertility N Polyps N Acid Reflux (GERD) N History of abnormal pap N Cancer N Stroke N Varicosities N Neurologic/Epilepsy N Endometriosis N High Cholesterol N Headaches N Fibromyalgia N Kidney Disease N Heart Problems N Kidney or Bladder Problems N Thyroid Problems Y GI Problems N Eating Disorder N Anemia N Art (IVF or FET) N Psychiatric Illness N Ovarian Cancer N Diabetes N Pulmonary (TB, Asthma) N Hepatitis/Liver Disease N No Past Medical History N Eczema N Urinary Tract Infection N Abuse/Domestic Violence N Asthma N Trauma/Violence N Depression/ depression Y Heart Disease N Pre-Eclampsia N Hypertension N Osteoporosis N Thrombophilias N Gynecological History Statement/Question Response Abnormal Pap N Date of Last Mammogram Date of LMP 10/14/2020 N On BCP's at Conception? N STIs/STDs N Was last menstrual period normal N HPV Vaccine N Duration of Flow (days) 8 Current Control Method Ablation Age at First Child 27 If Post Menopausal, Age at Menopause 54 Date of Last Colonoscopy Frequency of Cycle (Q days) 25 Sexually Active? Y Menses Monthly N Date of DEXA bone scan Age of first menstrual cycle 9 Date of Last Pap Smear Sexual Problems? Y LMP Approximate 03/05/2024 N Obstetrics History GPAL:G 2 P 2 0 0 2 Type Value Full Term 2 Living 2 Total 2 Past Encounters Encounter ID Performer Location Encounter Start Date Encounter Closed Date Diagnosis/Indication Diagnosis SNOMED-CT Code Diagnosis ICD10 Code Diagnosis IMO Codes Diagnosis Note [id number] DU Orellana Merrifield [address] [address] 02/26/2025 15:58:01 02/27/2025 14:07:35 Menopausal symptom 28660395 N95.1 [id number] Discussed menopausal symptoms and management options reviewed (hormonal vs non-hormon al)opts to start HRT, rx sent, r/b/a reviewedqu estions answered , precaution s discussed Pain in fe male genitalia on intercourse 60707654 N94.10 [id number] vaginal estrogen cream rxveg based moisturize r routine reviewedre varee EDWARDS discussed RTC for med check in 3-4 months Time spent in visit is a total of 35 mins with at least 50% of visit consisting of counseling and review of plan of care. [id number] DU Orellana Merrifield [address] [address] 03/28/2025 12:05:34 03/28/2025 13:32:14 Drug therapy finding [id number] Z79.890 [id number] VMS, brain fog, fatigue all improved on HRTincreas e appetite since startingwe discussed options (decreasin g estrogen dose vs switching to combinatio n patch vs monitoring over the next 2-3 months)she is going to monitor this symptoms over the next 3 months. We discussed ensuring adequate protein intake, myfitness pal to track, regular exercise, etcRTC for med check Time spent in visit is a total of 25 mins with at least 50% of visit consisting of counseling and review of plan of care. Screening mammography 122038 Z12.31 [id number] Health Concerns Section Related Observation LastModified by Organization Detai ls LastModified Time None Recorded Concern Status LastModified by Organization Details LastModified Time None Recorded Advance Directives Directive Y: Payers Insurance Date Sequence Insurance Name Policy Number Policy Parada Covered Member ID Parada Member ID Guarantor Name 06/17/2025 1 [place]ALEEL [place] (PPO[place] [id number] A Haseeb Quiroz [id number] Ilana Quiroz Notes Date Note Type Note Provider Name and Address Organization Details Recorded Time 02/26/2025 text/html 54yoPresents today with concerns of hot flashes, night sweats, fatigue, brain fog, vaginal dryness/dyspareuni asymptoms have been negatively impacting her lifeSymptoms present 1-2 yrsh/o endometrial ablation 2020 (no periods since) mammogram last 2019, has order from PCP and scheduled DU Orellana [address], [place], [address], [facility] 02/27/2025 11:50:46 03/28/2025 text/html 54yopresents for f/u on HRTstarted transdermal estradiol and nightly prometrium at [facility] (1 month ago)has been feeling much better! VMS improved, brain fog improved. Has noticed IC appetite over the past month. Lost 70lbs previously on semaglutide (stopped 6 months ago) Soila Riggs, DU [address], [place], [address], [place] [facility] 03/28/2025 13:32:08 OBGyn Episode Ob Episode Information Episode Created Date Number of Fetuses Patient Bloodtype Patient rh Status Prepregnancy Weight lbs Domestic Partner Domestic Partner Phone Father Name Call Center Recruiter Status 02/27/20 25 1 CLOSED Fetus Data First Name Last Name Admitted to NICU Weight (g) Sex Living Outcome Pediatric Complications Fetus ID Race Codes Race Delivery Type Full Term [id number] Repeat Miguelangel Calculation Initial Miguelangel Date Initial Exam Date Initial Exam Provider Initial Ultrasound Date Last Menstrual Period Date Ultra Sound Weeks Gestation 0 Eighteen To Twenty Week Miguelangel Update Ultra Sound Date Fundal Height At Umbil Quickening Date Ultra Sound Latest Weeks Gestation Final Miguelangel Confirmed By Final Miguelangel Confirmed Date Final Miguelangel Date Ultra Sound Latest Days Gestation 0 0 Menstrual History Last Menstrual Date Menses Monthly On Bcp Conception Prior Menses Frequency Hcg Plus Date Menarche Onset Age Delivery Information Delivery Date Delivery Type Labor Anesthesia Weeks Gestation Incision Type Labor Labor Length Hrs Delivered By Post Complications Tubal Sterilization Discharge Date Comments 8 Discharge Information Feeding Method Contraceptive Method Maternal HG B and HCT Levels Ob Episode Information Episode Created Date Number of Fetuses Patient Bloodtype Patient rh Status Prepregnancy Weight lbs Domestic Partner Domestic Partner Phone Father Name Call Center Recruiter Status 02/27/20 25 1 CLOSED Fetus Data First Name Last Name Admitted to NICU Weight (g) Sex Living Outcome Pediatric Complications Fetus ID Race Codes Race Delivery Type Full Term [id number] Primary Miguelangel Calculation Initial Miguelangel Date Initial Exam Date Initial Exam Provider Initial Ultrasound Date Last Menstrual Period Date Ultra Sound Weeks Gestation 0 Eighteen To Twenty Week Miguelangel Update Ultra Sound Date Fundal Height At Umbil Quickening Date Ultra Sound Latest Weeks Gestation Final Miguelangel Confirmed By Final Miguelangel Confirmed Date Final Miguelangel Date Ultra Sound Latest Days Gestation 0 0 Menstrual History Last Menstrual Date Menses Monthly On Bcp Conception Prior Menses Frequency Hcg Plus Date Menarche Onset Age Delivery Information Delivery Date Delivery Type Labor Anesthesia Weeks Gestation Incision Type Labor Labor Length Hrs Delivered By Post Complications Tubal Sterilization Discharge Date Comments 6 Discharge Information Feeding Method Contraceptive Method Maternal HG B and HCT Levels
--- OUTSIDE RECORDS SUMMARY | 2025-06-17 15:13 | XMS_ITS | Clinical Summary ---
Author Organization [facility] Address [address] [address] [place] [address] Phone Care Team Providers Care Force Variation Equipment Tender Name Role Phone Unavailable Primary Care Provider Unavailabl e Social History Tobacco Use Types Packs/Day Years Used Date Smoking Tobacco: Never Assessed Comments Unknown Sex and Gender Information Value Date Recorded Sex Assigned at Not on file Legal Sex Female 10:24 AM CDT Gender Identity Not on file Sexual Orientation Not on file Plan of Treatment Health Maintenance Due Date Last Done Comments DTAP/TDAP/TD VACCINES (1 - Tdap) 1989 HEPATITIS B VACCINES (1 of 3 - 19+ 3-dose series) 04/1990 HPV/Cotest (21-29) 1991 CERVICAL CANCER SCREENING 2000 HPV/Cotest (30-65) 2000 PAP SMEAR 2000 BREAST CANCER SCREENING 2010 COLORECTAL SCREENING 2015 Colorectal Cancer Screening 2015 FIT-DNA Q 3 years 2015 FIT/FOBT Q 1 year 2015 Flex Sig/CT Colonography Q 5 years 2015 ZOSTER VACCINE (1 of 2) 2020 INFLUENZA VACCINE (#1) 2025 Insurance BS BLUE ACCESS/TRUE BLUE PPO
== END 2025-06-17 14:04 | disposition home or self-care (01) ==
LOC: CHSIMG 14:05
PROVIDERS: PCP Family Medicine; Visit Provider Nurse Practitioner
DX: Z12.31 Encounter for screening mammogram for malignant neoplasm of breast (principal); R92.8 Other abnormal and inconclusive findings on diagnostic imaging of breast
CPT/HCPCS: 77063; 77067

== ENCOUNTER 2025-07-12 09:45 | Outpatient (CLI) | payer BC, SELFPAY ==
--- NOTE | ~2025-07-12 | MM_ITS ---
EXAMINATION: MM diagnostic darya RT w sandra INDICATION: 54-year old female; BI-RADS 0, callback to evaluate Right breast focal asymmetry COMPARISON: 06/17/2025 TECHNIQUE: Digital breast tomosynthesis True lateral view and spot compression pain CC and MLO views of Right breast were obtained with computer-aided detection to assist in interpretation of the study. FINDINGS: The breasts are heterogeneously dense, which may obscure small masses. The focal asymmetry seen in the superior central 12:00 Right breast on the screening mammogram effaces on additional views, compatible with normal overlapping tissue.. IMPRESSION: Right breast finding represents superimposition of fibroglandular tissue. No further investigation necessary. RECOMMENDATION: Annual screening mammography in 12 months BI-RADS 2, BENIGN Reviewed, dictated and finalized at location B. POLISHER IMPRESSION: Right breast finding represents superimposition of fibroglandular tissue. No fu rther investigation necessary. RECOMMENDATION: Annual screening mammography in 12 months BI-RADS 2, BENIGN
--- OUTSIDE RECORDS SUMMARY | 2025-07-12 10:27 | XMS_ITS | Clinical Summary ---
Author Organization [facility] Building A Address [address] [place] [address] Care Team Providers Care Medical Practitioners Name Role Phone Oliver Calixto MD Primary Care Provider [phone] Ramana Cody MD Unavailable [phone] Allergies Active Allergy Reactions Criticality Noted Date [...] for nausea 20 tablet 12/06/19 25 Active Geary Thyroid 60 mg tablet Take 1 tablet [...] Will continue to monitor. Referral placed to [facility] in [place] for physical therapy. Orders: Ambulatory referral order [...] appointment until March 2026. Referral placed to ob/gyn physician. Sleep disturbance 02/21/2025 Assessment & Plan (02/21/2025 [...] 10/09/2024 Assessment & Plan (10/09/2024 9:14 AM INSPECTOR AND SORTER): Preventive exam; reviewed recommended preventive screenings and [...] 02/19/2022 Assessment & Plan (10/09/2024 9:13 AM INSPECTOR AND SORTER): Continue meloxicam with good response, continue to [...] bp. Assessment & Plan (07/20/2021 8:38 AM INSPECTOR AND SORTER): bp on high side and needs to [...] (07/11/2020): Added automatically from request for surgery [id number] Right lower quadrant pain 06/03/2020 Overview (06/03/2020): Will get another opinion on this by surgery and their recommendations. Avoid heavy lifting, constipation. told her what to look out for Assessment & Plan (06/03/2020 11:35 AM CDT): Unable to palpate hernia or defect, requested to have CD of CT images brought from [facility]. Patient agrees. Continue to avoid heavy lifting or other aggravating factors. Will call patient after review of case with . Atypical squamous cell nichols es of undetermined significance (ASCUS) on cervical cytology with positive high risk human papilloma virus (HPV) 07/10/2019 Overview (03/25/2022): Note: Unchanged Microscopic hematuria 06/19/2018 Assessment & Plan (07/24/2019 10:02 AM INSPECTOR AND SORTER): Stable and chroinc Assessment & Plan (06/19/2018 [...] BETTER Assessment & Plan (07/20/2021 8:37 AM INSPECTOR AND SORTER): a1c 5.7 and was 5.4 and neds to drop Assessment & Plan (03/17/2021 8:19 AM CDT): a1c drifting down to 5.4 and better despite wt Gain. Assessment & Plan (12/16/2020 2:10 PM CDT): a1c at 5.6 and nl . Assessment & Plan (11/11/2020 9:12 AM INSPECTOR AND SORTER): a1c at 5.6 pre diabetic and inching up diet works Assessment & Plan (06/12/2020 1:35 PM CDT): a1c at 5.5 and nl. Assessment & Plan (02/22/2020 1:39 PM CDT): Check a1c on rturn Assessment & Plan (07/24/2019 9:58 AM INSPECTOR AND SORTER): a1c at 5.4 and 5.6 nl. Assessment & Plan (06/19/2018 8:56 AM CDT): Check a1c on return Assessment & Plan (02/16/2018 9:21 AM CDT): Check a1c on return Recurrent major depressive disorder, in partial remission 06/22/2017 Assessment & Plan (10/09/2024 9:14 AM INSPECTOR AND SORTER): Had tapered venlafaxine from 225 mg to [...] job. Assessment & Plan (07/20/2021 8:40 AM INSPECTOR AND SORTER): derpressino and partial contorll and restarting acativbity and workout s and help Assessment & Plan (04/14/2021 2:04 PM CDT): Active with dad's consider adding seroquel for help if not settelewd Assessment & Plan (12/16/2020 2:13 PM CDT): derpoiesn improved and with stress will settle as that dose for now leave meds as on . Assessment & Plan (11/11/2020 9:13 AM INSPECTOR AND SORTER): Active depresion and will add 75 of [...] time. Assessment & Plan (07/24/2019 10:01 AM INSPECTOR AND SORTER): Depression not apparently controlled given 30 lbs [...] shots. Assessment & Plan (11/11/2020 9:18 AM INSPECTOR AND SORTER): Well exam derpioens actived and adjmust meds and life and see if helps Screening lipids mildy up and a1c at 5.6. Recent intervention at [facility]. Probably covid months ago. See for bp and li pids in 4 monhts and deproieons in 4-6 wks Discussed colon and for now on back burner Assessment & Plan (07/24/2019 10:09 AM INSPECTOR AND SORTER): Consider fal flu shots. Needs to take [...] limited. Assessment & Plan (07/20/2021 8:39 AM INSPECTOR AND SORTER): ldl up to 141 and was 121 [...] limited. Assessment & Plan (11/11/2020 9:11 AM INSPECTOR AND SORTER): ldl above 100 with target down and [...] limited. Assessment & Plan (07/24/2019 9:57 AM INSPECTOR AND SORTER): ldl at 106 and less ehn 130 [...] wt Assessment & Plan (07/20/2021 8:41 AM INSPECTOR AND SORTER): workto keep from cont to gain Assessment [...] 12/16/2020 Assessment & Plan (11/11/2020 9:06 AM INSPECTOR AND SORTER): The bp high and treatable if not [...] bp. Assessment & Plan (07/24/2019 10:01 AM INSPECTOR AND SORTER): bp high enough tat if cont to [...] 02/16/2018 Assessment & Plan (10/25/2017 3:22 PM INSPECTOR AND SORTER): In hosp cat bite. Not sure if had t etnus but reportedly ordered. Done with antibiotics 4 dasy ago. Residual hand soreness and just now able to close hand. Not putting back onrings. Residual likely post bite inflamation and made worse by the infectio but t raum is now clearing and will go slow. Assessment & Plan (10/11/2017 7:25 AM INSPECTOR AND SORTER): She continues to improve, with near resolution [...] 12/17/19 Assessment & Plan (11/11/2020 9:13 AM INSPECTOR AND SORTER): Work to robina wt Assessment & Plan (06/12/2020 1:34 PM CDT): Work to drop more Assessment & Plan (02/22/2020 1:36 PM CDT): Work to drop a few lbs Assessment & Plan (07/24/2019 9:57 AM INSPECTOR AND SORTER): Sign wt gain in albst 4-6 months [...] Encounters Date Type Department Care Team Description 06/20/2025 Results Follow-Up [facility] [address] [phone] Kerry James NP SCREENING MAMMOGRAM BILATERAL W MIKO 06/19/2025 Orders Only [facility] [address] [phone] Kerry James NP Encounter for screening mammogram for breast cancer 06/14/2025 9:45 AM CDT Office Visit [facility] [address] [place] [phone] Kasandra Willis NP Acute nasopharyngitis (common cold) (Primary Dx); Sore throat; Suspected COVID-19 virus infection 06/14/2025 Nurse Triage [facility] [address] [phone] Oliver Calixto MD 05/22/2025 Telephone [facility] [address] [phone] Karen Boyd NP 05/16/2025 Telephone [facility] [address] [phone] Oliver Calixto MD 05/08/2025 11:00 AM CDT Office Visit [facility] [address] [phone] Karen Boyd NP Primary osteoarthritis of right knee (Primary Dx); Effusion of right knee; BMI 25.0-25.9,adult 05/07/2025 Telephone [facility] [address] [phone] Oliver Calixto MD Test Results 04/23/2025 10:09 AM CDT - 04/23/2025 11:59 PM CDT Hospital Encounter [facility] [address] [place] [id number] Contusion of right knee, initial encounter Discharge [...] Medical History Date Comments Hx Other Medical 01-DRAFTER Anxiety Covid-19 08/25/2020 Essential hypertension 12/16/2020 Post [...] on file Legal Sex Female 6:46 PM INSPECTOR AND SORTER Gender Identity Female 09/01/2020 8:00 AM INSPECTOR AND SORTER Sexual Orientation Straight 09/01/2020 8: 00 AM INSPECTOR AND SORTER Obstetrics History Para Term AB IAB SAB [...] 1988 Zoster Vaccine (1 of 2) 2020 Covid-19 Vaccine ( season) 2025 12/29/2020, 12/08/2020 Influenza Vaccine (#1) 2025 9, 06/22/2017, 06/25/2015, Additional history exists Pneumococcal vaccine <65 (1 of 2 - PCV) 09/24/2025 Postponed from 1989 (Patient declined, but will receive in the future) Regular Well Visit/Exam 18-64 10/09/2025 10/09/2024, 12/08/2021, 11/11/2020, Additional history exists Depression Screening 05/08/2026 05/08/2025, 02/21/2025, 10/09/2024, Additional history exists Breast Cancer Screening-Mammogram 06/17/2026 06/17/2025, 12/17/2022, 12/15/2021, Additional history exists DTaP/Tdap/Td Vaccine (2 - Td or Tdap) 10/08/2027 10/08/2017 Colon Cancer Screening-Colonoscopy 10/21/2032 10/21/2022 Goals Goal Patient Goal Type Associated Problems Recent Progress Patient-Stated? Author [facility] On track( 023 8:32 AM CDT) Aminah Dent, CRYSTAL Note: Patient will establish a comfort-function goal and identify the pain level that will allow the patient to perform desired activities and achieve an acceptable quality of life. Procedures Procedure Name Priority Date/Time Associated Diagnosis Comments SCREENING MAMMOGRAM BILATERAL W MIKO Schedule Routine, Read Routine (OP Routine) 06/17/2025 8:29 AM CDT Encounter for screening mammogram for breast cancer POCT RAPID STREP Routine 06/14/2025 10:0 3 AM CDT Sore throat Suspected COVID-19 virus infection POC INFLUENZA A/B, COVID-19 ANTIGEN Routine 06/14/2025 10:02 AM CDT Sore throat Suspected COVID-19 virus infection XR KNEE RIGHT 4 OR MORE VIEWS Schedule Routine, Read Routine (OP Routine) 04/23/2025 11:03 AM CDT Contusion of right knee, initial encounter COLONOSCOPY 10/21/2022 9:30 AM INSPECTOR AND SORTER from Last 3 Months or Most Recently Relevant to Health Maintenance Results * SCREENING MAMMOGRAM BILATERAL W MIKO (06/17/2025 8:29 AM CDT) Anatomical Region Laterality Modality Breast Bilateral Mammography Kerry James TARIFF INSPECTOR IMG MAMMO PROCEDURES Final Result * POCT rapid strep A (06/14/2025 10:03 AM CDT) Rapid Strep A, POC Negative Negative Swab 06/14/2025 10:0 3 AM CDT Kasandra Willis TARIFF INSPECTOR POINT OF CARE TEST ORDER EVELYNE Final Result * POC Influenza A/B, COVID-19 antigen (06/14/2025 10:02 AM CDT) Influenza A Ag, POC Negative Negative [facility] Influenza B Ag, POC Negative Negative [facility] COVID-19 Ag POC Presumptive Negative Presumptive Negative, Invalid [facility] Nasal 06/14/2025 10:0 2 AM CDT Kasandra Willis TARIFF INSPECTOR POINT OF CARE TEST ORDER EVELYNE Final Result [facility] [address] [place] [address], [facility] * XR Knee Right 4+ Vw [...] Electronically signed by Haseeb Otero M.D. MF: Report ID: [id number] Reading Location: [id number] Procedure Note Haseeb Otero MD - 04/24/2025 [...] Electronically signed by Haseeb Otero M.D. MF: Report ID: [id number] Reading Location: [place] [address] us Oliver Calixto MD IMG XR PROCEDURES Final R esult * COLONOSCOPY (10/21/2022 9:30 AM INSPECTOR AND SORTER) Anatomical Region Laterality Modality Other Narrative Procedure Note Huey Josue MD - 10/21/2022 9:30 AM CST [facility] Patient Name: Ilana Quiroz Procedure Date: 10/21/2022 9:30 AM Date of : 1970 Admit Type: Outpatient Age: 52 Gender: Female Attending MD: Huey Josue M.D. Room: [facility]COPY ROOM 2 Note Status: Finalized Patient [...] scope was passed under direct vision. TheColonoscope [id number] was introduced through the anus and advanced [...] malignant neoplasm of colon CPT copyright 2020 [employer]. All rights reserved. The codes documented in this report are preliminary and upon investment strategist reviewmay be revised to meet current compliance requirements. Recognized by the [employer] for promoting quality in endoscopy Huey Josue MD ENDOSCOPY PROCEDURES Final Re sult from Last 3 Months or Most Recently Relevant to Health Maintenance Insurance [employer] [facility] ANTHEM ACCESS ANTHEM ACCESS Advance Directives For more information, please contact: [phone] * Full Code (Latest Code Status on File) Date Activated Date Inactivated Comments 10/21/2022 9:39 AM 09/27/2023 12:24 PM * Full Code Date Activated Date Inactivated Comments 10/21/2022 9:39 AM 10/21/2022 9:39 AM * Full Code Date Activated Date Inactivated Comments 10/08/2017 1:03 AM 10/11/2017 11:54 AM Care Teams Medical Practitioners Relationship Specialty Start Date End Date Oliver Calixto MD [address] [place] [address] PCP - General Family Medicine 04/20/22 Ramana Cody MD [address] [place] [address] Anesthesiologist Pain Management 07/19/22
--- OUTSIDE RECORDS SUMMARY | 2025-07-12 10:27 | XMS_ITS | Encounter Summary ---
Author Organization [facility] [place] [facility] Address [address] [place] [address] Phone Care Team Providers Care Asbestos Worker Name Role Phone Ramana Garcias MD Primary Care Provi kenia Vani Freed MD Primary Care Provide r Vani Freed MD Primary Care Provide r Oliver Calixto MD Primary Care Provider [phone] Ramana Cody MD Unavailable [phone] Encounter Details Date Type Department Care Team (Late st Contact Info) Description 12/12/2017 Orders Only [facility] ProviderNolvia MD [facility] [place] [address] Social History Tobacco Use Types Packs/Day Years Used Date Smoking Tobacco: Never Smokeless Tobacco: Never Alcohol Use Standard Drinks/Week Comments Yes 10 (1 standard drink = 0.6 oz pu re alcohol) Comments No Sex and Gender Information Value Date Recorded Sex Assigned at Not on file Legal Sex Female 6:46 PM SEAT COVER MAKER Gender Identity Female 09/01/2020 8:00 AM SEAT COVER MAKER Sexual Orientation Straight 09/01/2020 8: 00 AM SEAT COVER MAKER documented as of this encounter Functional Status * In the past year, patient experienced: Question Answer Date of Assessment Author One or more falls in the last year Yes 2017 8:46 AM CDT Ye [place] MA How many times? 2 or more 12/12/2017 8:46 AM CDT Ye [place] documented as of this encounter Plan of [...] Time COVID19 08/25/2020 08/25/2020 09/08/2020 3:06 AM SEAT COVER MAKER COVID: Recovered Comment:Added based on recent COVID infection. 09/08/2020 09/08/2020 01/06/2021 3:05 AM C DT COVID: Suspected 09/06/2022 09/06/2022 09/06/2022 2:41 PM SEAT COVER MAKER COVID: Suspected 09/06/2022 09/06/2022 09/06/2022 9:18 PM SEAT COVER MAKER COVID: Suspected 09/24/2023 09/24/2023 09/24/2023 2:42 PM SEAT COVER MAKER COVID: Suspected 09/24/2023 09/24/2023 09/24/2023 2:57 PM SEAT COVER MAKER COVID19 09/24/2023 09/24/2023 10/04/2023 3:05 AM SEAT COVER MAKER COVID: Recovered Comment:Added based on recent COVID infection. 10/04/2023 10/09/2023 01/02/2024 3:05 AM C DT COVID: Suspected 06/14/2025 06/14/2025 06/14/2025 10:04 AM CDT documented as of this encounter Care Teams Asbestos Worker Relationship Specialty Start Date End Date Ramana Garcias MD PCP - General 3/11/13 7/26/22 Vani Freed MD [address] [place] [address] [address] [place] [address] PCP - General Family Medicine 04/15/22 04/19/22 Vani Freed MD [address] [place] [address] [address] [place] [address] PCP - General 03/31/22 04/14/22 Oliver Calixto MD [address] [place] [address] PCP - General Family Medicine 04/20/22 Ramana Cody MD [address] [place] [address] Anesthesiologist Pain Management 07/19/22 documented as of this encounter
--- OUTSIDE RECORDS SUMMARY | 2025-07-12 10:27 | XMS_ITS | Data Portability ---
Author Organization [facility] Address [address] [place] [address] Care Team Providers Care Binding Nicker Name Role Phone LUCILA PORTILLO Primary Care Provider [phone] Assessment No assessment recorded. Plan of Treatment Reminders Order Date Submit Date Provider Last Modified By Organization Details Last Modified Time Details Appointments None recorded. Lab None recorded. Referral psychiatris t referral 2024 [email or web address] 8 Jessica Palacios [facility], [address], [place], [address], 14:21:37 Procedures None recorded. Surgeries None recorded. Imaging US, breast, unilateral 2024 [facility], [address] [place], [address], 04:13:45 MAMMO, diagnostic, unilateral 2024 [facility], [address] [place], [address], 04:13:46 MAMMO, screening, digital, bilateral 2024 [facility] Not available 09:07:45 Medication Orders estradiol 0.075 mg/24 hr semiweekly transdermal patch 2024 [id number], [address], [place], [id number], 12:15:01 progesteron e micronized 200 mg capsule 2024 [facility] #[id number], [address], [place], [id number], 12:15:23 estradiol 0.01% (0.1 mg/gram) vaginal cream 2024 [facility] #53034, [address], [place], [id number], 17:01:31 estradiol 0.05 mg/24 hr semiweekly transdermal patch 2024 [facility] #98493, [address], [place], [id number], 16:59:10 progesteron e micronized 100 mg capsule 2024 [facility] #47671, [address], [place], [id number], 12:15:33 Patient TargetsNo targets recorded. Patient InstructionsNo instructions recorded. Reason for Referral Psychiatrist Referral for Mo derate major depression, single episode Referring Physician: Soila Ramachandran, NEONATOLOGIST, Encounter Date: 06/20/2025 Results Created Date Observation Date Name Description Value Unit Range Abnormal Flag Note LastModifiedBy Organization Detail LastModifiedTime 06/19/20 25 06/17/2025 MAMMO , scree bonita, digit al, bilat eral No observ ation record ed. [email or web address] Formerly [facility] [address] [place], [address], 06/20/2025 10:12:37 Result Notes None recorded. Procedures Surgical History Date Name Laterality Status Provider Name and Address Organization Details Recorded Time 10/13/202 5 Date of Last Mammogram completed Ana Smith [facility] 06/20/2025 11:31:02 4 completed [facility] 02/26/2025 16:11:38 8 Tubal Ligation completed [facility] 02/26/2025 16:11:39 8 section completed [facility] 02/26/2025 16:21:47 6 Caesarean Section completed [facility] 02/26/2025 16:11:39 Imaging Results None recorded. Procedure Notes None recorded. Medical Equipment None Reported. Allergies No known drug allergies Medications Name Sig Start Date Stop Date Status Note LastModified by Organization Details LastModified Time [facility] Thyroid 60 mg tablet TAKE 1 TABLET [...] Available progesteron e micronized 200 mg capsule Take 1 capsule every day by oral route at bedtime. 2024 active Not Available Not Available Not Jefferyai lababby [facility] Thyroid 30 mg tablet TAKE 1 TABLET [...] TAKE 1 CAPSULE BY MOUTH EVERY DAY 06/20 completed Not Available Not Available Not Available amoxicillin 875 mg-potassiu m clavulanate 125 mg tablet TAKE 1 TABLET BY MOUTH TWICE DAILY FOR 7 DAYS 02/26 completed Not Available Not Available Not Available diclofenac 1 % topical gel APPLY 4 GRAMS TOPICALLY TO THE AFFECTED AREA FOUR TIMES DAILY 06/20 completed Not Available Not Available Not Available Lyllana 0.075 mg/24 hr transdermal patch APPLY 1 PATCH TOPICALLY TO [...] Updated DateTime 02/26/2025 162.56 cm 25.1 kg/m2 61513.49 g 125/79 mm[Hg] [facility] 02/26/2025 16:13:20 Date Recorded Body height Body mass index (BMI) Body weight Systolic And Diastolic Provider Name and Address Organization Details Last Updated DateTime 03/28/2025 162.56 cm 25.4 kg/m2 41973.67 g 112/76 mm[Hg] [facility] 03/28/2025 12:36:33 Date Recorded Body height Body mass index (BMI) Body weight Systolic And Diastolic Provider Name and Address Organization Details Last Updated DateTime 06/20/2025 162.56 cm 24.5 kg/m2 94157.71 g 127/82 mm[Hg] Ana Smith [facility] 06/20/2025 11:30:31 Social History Question Answer Notes LastModified by Organizat ion Details LastModified Time Tobacco Smoking Status Never Smoker Belinda Rosa [facility] 02/26/2025 16:20:44 Do You Have An Advance Directive? Yes [email or web address] Information n ot available 02/26/2025 How Many Years Have You Consumed Alcohol? 33 [email or web address] Information not available 02/26/2025 Are You Blind Or Do You Have Difficulty Seeing? No Information n ot available 02/26/2025 What Is Your Level Of Caffeine Consumption? Moderate [email or web address] Information not available 02/26/2025 How Much Tobacco Do You Chew? None Information not available 02/26/2025 In The 14 Days Before Symptom Onset, Have You Had Close Contact With A Laboratory-confirm ed COVID-19 While That Case Was Ill? No [email or web address] Information n ot available 02/26/2025 In The 14 Days Before Symptom Onset, Have You Had Close Contact With A Person Who Is Under Investigation For COVID-19 While That Person Was Ill? No [email or web address] Information not available 02/26/2025 Have You Been To An Area Known To Be High Risk For COVID-19? No [email or web address] Information not available 02/26/2025 Are You Deaf Or Do You Have Serious Difficulty Hearing? No [email or web address] Information not available 02/26/2025 What Type Of Diet Are You Following? REGULAR [email or web address] Information n ot available 02/26/2025 Which Illicit Or Recreational Drugs Have You Used? MJ [email or web address] Information not available 02/26/2025 What Is The Highest Grade Or Level Of School You Have Completed Or The Highest Degree You Have Received? [id number] [email or web address] Information not available 02/26/2025 Are There Any Guns Present In Your Home? Yes [email or web address] Information not available 02/26/2025 Do You Use Protection During Sex? No [email or web address] Information not available 02/26/2025 Do You Use Your Seat Belt Or Car Seat Routinely? Yes [email or web address] Information not available 02/26/2025 Do You Have Smoke And Carbon Monoxide Detectors In Your Home? Yes [email or web address] Information not available 02/26/2025 How Much Tobacco Do You Smoke? No [email or web address] Information not available 02/26/2025 Do You Use Sunscreen Routinely? Yes [email or web address] Information not available 02/26/2025 Have You Used IV Drugs? No [email or web address] Information not available 02/26/2025 Sex: Unknown Functional Status Question Answer Note LastModified by Organizat ion Details LastModified Time Do you use any illicit or recreational drugs? Yes [email or web address] Information not available 02/26/2025 What is your level of alcohol consumption? Occasional [email or web address] Information not available 02/26/2025 Are you able to walk independently without assistance or assistive devices? 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 Occasional [email or web address] Information not available 02/26/2025 Mental Status Question Answer Note LastModified by Organization D etails LastModified Time Do you feel stressed (tense, restless, nervous, or anxious, or unable to sleep at night)? [id number] Information not available 02/26/2025 Family History Relationship Description Onset Age of this Age Resolved Age Notes LastModified by Organization Details LastModified Time Mother Osteoporosis [email or web address] Not avai lable 02/26/2025 16:11:38 Medical History Condition Response Allergies (Food, seasonal, environmental ) N Other N Breast Cancer N Drug/Latex Allergies/Reactions N Blood Transfusion N Lung Disease N Dermatologic Disorders N Defects or Inherited Disease N Breast [...] Abnormal Pap N Date of Last Mammogram 06/17/2025 Date of LMP 10/14/2020 N On BCP's [...] ICD10 Code Diagnosis IMO Codes Diagnosis Note [id number] [facility] [address],[place] [address] 02/26/2025 15:58:01 02/27/2025 14:07:35 Menopausal symptom 11217976 N95.1 447759 Discussed menopausal symptoms and management options reviewed (hormonal vs non-hormon al)opts to start HRT, rx sent, r/b/a reviewedqu estions answered , precaution s discussed Pain in fe male genitalia on intercourse [id number] N94.10 [id number] vaginal estrogen cream rxveg based moisturize r routine reviewedre varee EDWARDS discussed RTC for med check in 3-4 months Time spent in visit is a total of 35 mins with at least 50% of visit consisting of counseling and review of plan of care. [id number] [facility] [address],[place] [address] 03/28/2025 12:05:34 03/28/2025 13:32:14 Drug therapy finding [id number] Z79.890 [id number] VMS, brain fog, fatigue all improved on [...] review of plan of care. Screening mammography 24 279146 Z12.31 [id number] [facility] [address],[place] [address] 06/20/2025 11:21:48 06/21/2025 14:21:37 Menopausal symptom 16714235 N95.1 146159 Today we reviewed her menopausal symptoms and current HRT regimenshe desires to increase the dosing as she feels like her symptoms could be better controlled we reviewed the r/b along with alternativ e optionsrx sentRTC for med check in 3-4 months Moderate m ajor depression, single episode [id number] F32.9 [id number] Discussed recently increasing depressive symptomsre c f/u with psychiatry as her current regimen is no longer controllin g her symptomsre ferral placed for psychiatry NPcontinue counseling precaution s reviewed (if MARIA EUGENIA 911/ED immediatel y) Inconclusi ve mammography finding [id number] 44447 R92.2 [id number] Recent mammogram bi-rads 0needs additional right breast imagingord er placed for diagnostic right breast u/s and mammogram Time spent in visit is a total of 35 mins with at least 50% of visit consisting of counseling and review of plan of care. Health Concerns Section Related Observation LastModified by Organization Detai ls LastModified Time None Recorded Concern Status LastModified by Organization Details LastModified Time None Recorded Advance Directives Directive Y: Payers Insurance Date Sequence Insurance Name Policy Number Policy Parada Covered Member ID Parada Member ID Guarantor Name 06/24/2025 1 JALEEL MCGOWAN (PPO) [id number] A Haseeb Quiroz [id number] Ilana Quiroz Notes Date Note Type Note Provider Name and Address Organization Details Recorded Time 02/26/2025 text/html 54yoPresents today with concerns of hot flashes, night sweats, fatigue, brain fog, vaginal dryness/dyspareunias ymptoms have been negatively impacting her lifeSymptoms present 1-2 yrsh/o endometrial ablation 2020 (no periods since) mammogram last 2019, has order from PCP and scheduled [facility] [address], [place], [address], [facility] 02/27/2025 11:50:46 03/28/2025 text/html 54yopresents for f/u on HRTstarted transdermal estradiol and nightly prometrium at [facility] (1 month ago)has been feeling much better! VMS improved, brain fog improved. Has noticed IC appetite over the past month. Lost 70lbs previously on semaglutide (stopped 6 months ago) [facility] [address], [place], [address], [facility] 03/28/2025 13:32:08 06/20/2025 text/html 54yoHere today for medication f/u on HRTestradiol patches and nightly prometriumVMS improved, however still experiencing brain fog/fatigue/mood changes/trouble sleepingRecently lost both of her dogs, increased stress at work. Feeling down/sad more often. Less enjoyment in activities. Tearful today.Sees a counselor regularlyon effexor and trazodoneDenies ever thoughts of harming self or others [facility] [address], [place], [address], [place] [facility] 06/21/2025 13:29:11 OBGyn Episode Ob Episode Information Episode Created Date Number of Fetuses Patient Bloodtype Patient rh Status Prepregnancy Weight lbs Domestic Partner Domestic Partner Phone Father Name Technology Strategist Status 02/27/20 25 1 CLOSED Fetus Data First Name Last Name Admitted to NICU Weight (g) Sex Living Outcome Pediatric Complications Fetus ID Race Codes Race Delivery Type Full Term 38180 Repeat Miguelangel Calculation Initial Miguelangel Date Initial [...] Domestic Partner Domestic Partner Phone Father Name Technology Strategist Status 02/27/20 25 1 CLOSED Fetus Data First Name Last Name Admitted to NICU Weight (g) Sex Living Outcome Pediatric Complications Fetus ID Race Codes Race Delivery Type Full Term 15003 Primary Miguelangel Calculation Initial Miguelangel Date Initial [...]
--- OUTSIDE RECORDS SUMMARY | 2025-07-12 10:27 | XMS_ITS | Clinical Summary ---
Author Organization [facility] Address [address] [address] [place] [address] Phone Care Team Providers Care Public Health Nutritionist Name Role Phone Unavailable Primary Care Provider [...]
== END 2025-07-12 09:46 | disposition home or self-care (01) ==
PROVIDERS: PCP Family Medicine; Visit Provider Nurse Practitioner
DX: R92.2 Inconclusive mammogram (principal)
CPT/HCPCS: 77061; 77065; G0279